=== PATIENT | male | born 1985 | race Hispanic/Latino ===

== ENCOUNTER 2018-07-12 13:07 | Emergency (ER) | payer MEDICAID ==
[2018-07-12 13:08] VITALS: BMI 22.4
[2018-07-12] MEDS ORDERED: Sodium Chloride 0.9% 1,000 ML IV ONE (15:21)
--- NOTE | 2018-07-12 15:57 | C.PDOC ---
History Of Present Illness 32 y/o male presents to the ER complaining of feeling nauseous and several episodes of vomiting. Patient states that he is having ETOH withdrawal. Patient reports that his last drink was around 10 am today. He notes that he has been binge drinking for the past 3 days after he was discharged from rehab.Denies having CP, SOB, fever, chills, and abdominal pain. Time Seen by Provider: 07/12/18 14:48 Chief Complaint (Nursing): Substance Abuse History Per: Patient History/Exam Limitations: no limitations Onset/Duration Of Symptoms: Days Current Symptoms Are (Timing): Still Present Severity: Moderate Past Medical History Reviewed: Historical Data, Nursing Documentation, Vital Signs Vital Signs: Last Vital Signs Temp 98 F 07/12/18 13:39 Pulse 105 H 07/12/18 13:39 Resp 20 07/12/18 13:39 BP 117/74 07/12/18 13:39 Pulse Ox 96 07/12/18 13:39 - Medical History PMH: No Chronic Diseases Other Surgeries: Hx of surgeries Family History: States: No Known Family Hx - Social History Hx Tobacco Use: Yes ("some days") Hx Alcohol Use: Yes Hx Substance Use: Yes (Marijuana) - Immunization History Hx Tetanus Toxoid Vaccination: No Hx Influenza Vaccination: No Hx Pneumococcal Vaccination: No Review Of Systems Except As Marked, All Systems Reviewed And Found Negative. Cardiovascular: Negative for: Chest Pain Respiratory: Negative for: Shortness of Breath Gastrointestinal: Positive for: Nausea, Vomiting. Negative for: Abdominal Pain Genitourinary: Negative for: Dysuria, Hematuria Physical Exam - Physical Exam Appears: Other (uncomfortable, mildly tremulous) Skin: Normal Color, Warm, Dry Head: Atraumatic, Normacephalic Eye(s): bilateral: Normal Inspection Nose: Normal Oral Mucosa: Moist Neck: Supple Chest: Symmetrical Cardiovascular: Rhythm Regular (with mild tachycardia) Respiratory: Normal Breath Sounds, No Rales, No Rhonchi, No Wheezing Gastrointestinal/Abdominal: Soft, Tenderness (mild epigastric tenderness), No Guarding, No Rebound, Other (negative Alicea's, negative McBurney's) Neurological/Psych: Oriented x3, Normal Speech ED Course And Treatment - Laboratory Results Result Diagrams: 07/12/18 16:09 07/12/18 16:09 O2 Sat by Pulse Oximetry: 96 (RA) Pulse Ox Interpretation: Normal Progress Note: Labs and UA ordered.Patient treated with Pepcid IV, Zofran IV, and IV Fluids. Disposition Counseled Patient/Family Regarding: Studies Performed, Diagnosis, Need For Followup, Rx Given - Disposition Referrals: [facility] [Outside] Disposition: HOME/ ROUTINE Disposition Time: 18:00 Condition: STABLE Additional Instructions: CALL FOR PRESCREENING USE MEDICATIONS DIRECTED RETURN TO ER IF YOUR SYMPTOMS WORSEN Prescriptions: chlordiazePOXIDE [Librium] 50 mg PO UPON ADM #20 cap Ondansetron ODT [Zofran ODT] 1 odt PO BID PRN #15 odt PRN Reason: Nausea/Vomiting Instructions: Alcohol Abuse and Alcoholism (DC) Forms: [facility] (Amharic) Print Language: GREENLANDIC - Clinical Impression Clinical Impression: Alcohol dependence - Scribe Statement The provider has reviewed the documentation as recorded by the Julio Babcock Provider Attestation: All medical record entries made by the Scribe were at my direction and personally dictated by me. I have reviewed the chart and agree that the record accurately reflects my personal performance of the history, physical exam, medical decision making, and the department course for this patient. I have also personally directed, reviewed, and agree with the discharge instructions and disposition.
[2018-07-12 16:12] LABS: BASO # 0.1 K/uL (0.0-0.2); BASO % 0.7 % (0.0-2.0); EOS % 0.2 % (0.0-4.0); HEMOGLOBIN 17.8 g/dL (12.0-18.0); LYMPH # 2.7 K/uL (1.0-4.3); LYMPH % 25.1 % (20.0-40.0); MEAN CELL VOLUME 93.5 fL (80.0-94.0); MEAN CORPUSCULAR HEMOGLOBIN 31.9 pg (27.0-31.0); MEAN CORPUSCULAR HGB CONC 34.1 g/dL (33.0-37.0); MEAN PLATELET VOLUME 7.1 fL (7.2-11.7); MONO # 0.4 K/uL (0.0-0.8); MONO % 4.1 % (0.0-10.0); NEUT # 7.5 K/uL (1.8-7.0); NEUT % 69.9 % (50.0-75.0); NRBC % 0.1 % (0.0-2.0); RBC 5.6 Mil/uL (4.40-5.90); RED CELL DISTRIBUTION WIDTH 13.3 % (11.5-14.5); WHITE BLOOD COUNT 10.7 K/uL (4.8-10.8)
[2018-07-12] MEDS ORDERED: Sodium Chloride 0.9% 1,000 ML ONE (16:12)
[2018-07-12 16:33] LABS: URINE BILIRUBIN NEGATIVE (NEGATIVE); URINE BLOOD NEGATIVE (NEGATIVE); URINE CLARITY Clear (Clear); URINE COLOR Yellow (YELLOW); URINE GLUCOSE (UA) NORMAL (Normal); URINE LEUKOCYTE ESTERASE NEG Leu/uL (Negative); URINE PROTEIN NEGATIVE (NEGATIVE); URINE UROBILINOGEN NORMAL mg/dL (0.2-1.0)
[2018-07-12 16:37] LABS: ALB/GLOB RATIO 1.6 (1.0-2.1); ALBUMIN 5.3 g/dL (3.5-5.0); ALT/SGPT 33 U/L (21-72); AST/SGOT 45 U/L (17-59); BLOOD UREA NITROGEN 10 mg/dL (9-20); CALCIUM 9.1 mg/dl (8.6-10.4); GFR NON-AFRICAN AMERICAN > 60; LIPASE 119 U/L (23-300)
[2018-07-12 17:33] VITALS: BP 133/82; PULSE 102; RESP 17; TEMP 98.8; O2SAT 96
== END 2018-07-12 18:21 | disposition home or self-care (01) ==
LOC: C.ER 13:07
DX: F10.20 Alcohol dependence, uncomplicated (principal); F17.200 Nicotine dependence, unspecified, uncomplicated
CPT/HCPCS: 80053; 81001; 83690; 85025; 96361; 96374; 96375; 99284; J2405; J7030

== ENCOUNTER 2018-08-11 23:46 | Inpatient (IN) | payer MEDICAID ==
[2018-08-11 23:46] VITALS: BMI 22.4
[2018-08-12] VITALS: O2SAT 96
--- NOTE | 2018-08-12 01:07 | C.PDOC ---
History Of Present Illness 32 year old male presents requesting detox. Patient also verbalizing SI earlier. Chief Complaint (Nursing): Substance Abuse History Per: Patient History/Exam Limitations: no limitations Onset/Duration Of Symptoms: Days Current Symptoms Are (Timing): Still Present Suicide/Self Injury Attempted (Context): None Recent travel outside of the [place]: No Past Medical History Reviewed: Historical Data, Nursing Documentation, Vital Signs Vital Signs: Last Vital Signs Temp 98.3 F 08/11/18 23:53 Pulse 112 H 08/11/18 23:53 Resp 24 08/11/18 23:53 BP 159/82 H 08/11/18 23:53 Pulse Ox 96 08/11/18 23:53 Family History: States: Unknown Family Hx - Social History Hx Tobacco Use: Yes ("some days") Hx Alcohol Use: Yes Hx Substance Use: Yes (Marijuana) - Immunization History Hx Tetanus Toxoid Vaccination: No Hx Influenza Vaccination: No Hx Pneumococcal Vaccination: No Review Of Systems Constitutional: Negative for: Fever, Chills Cardiovascular: Negative for: Chest Pain, Palpitations Respiratory: Negative for: Cough, Shortness of Breath Gastrointestinal: Negative for: Nausea, Vomiting Neurological: Negative for: Weakness, Numbness Physical Exam - Physical Exam Appears: Non-toxic, Other (Slightly AOB) Skin: Normal Color, Warm, Dry Head: Atraumatic, Normacephalic Eye(s): bilateral: Normal Inspection Oral Mucosa: Moist Neck: Normal, Supple Chest: Symmetrical, No Tenderness Cardiovascular: Rhythm Regular Respiratory: Normal Breath Sounds, No Rales, No Rhonchi, No Wheezing Gastrointestinal/Abdominal: Soft, No Tenderness Neurological/Psych: Oriented x3, Normal Speech ED Course And Treatment - Laboratory Results Result Diagrams: 08/12/18 01:24 08/12/18 01:24 O2 Sat by Pulse Oximetry: 96 (Room air) Pulse Ox Interpretation: Normal Progress Note: Blood work and urinalysis ordered. Patient being seen by crisis for admission. Disposition Discussed With : Brianda Hodges Doctor Will See Patient In The: Hospital Counseled Patient/Family Regarding: Diagnosis - Disposition Disposition: HOSPITALIZED Disposition Time: 03:58 Condition: STABLE Forms: [facility] (Central African) - Clinical Impression Clinical Impression: Depressive disorder, Alcohol use disorder - Scribe Statement The provider has reviewed the documentation as recorded by the Scribe Kalyan Humphrey All medical record entries made by the Scribe were at my direction and personally dictated by me. I have reviewed the chart and agree that the record accurately reflects my personal performance of the history, physical exam, medical decision making, and the department course for this patient. I have also personally directed, reviewed, and agree with the discharge instructions and disposition.
[2018-08-12 01:31] LABS: BASO % 0.4 % (0.0-2.0); EOS % 0.2 % (0.0-4.0); HEMOGLOBIN 17.7 g/dL (12.0-18.0); LYMPH # 2.3 K/uL (1.0-4.3); LYMPH % 23.3 % (20.0-40.0); MEAN CELL VOLUME 96.4 fL (80.0-94.0); MEAN CORPUSCULAR HEMOGLOBIN 33.1 pg (27.0-31.0); MEAN CORPUSCULAR HGB CONC 34.4 g/dL (33.0-37.0); MEAN PLATELET VOLUME 7.7 fL (7.2-11.7); MONO # 0.7 K/uL (0.0-0.8); MONO % 7.3 % (0.0-10.0); NEUT # 6.9 K/uL (1.8-7.0); NEUT % 68.8 % (50.0-75.0); NRBC % 0.1 % (0.0-2.0); RBC 5.35 Mil/uL (4.40-5.90); RED CELL DISTRIBUTION WIDTH 13.5 % (11.5-14.5)
[2018-08-12 01:44] LABS: URINE BILIRUBIN NEGATIVE (NEGATIVE); URINE BLOOD NEGATIVE (NEGATIVE); URINE CLARITY Clear (Clear); URINE COLOR Yellow (YELLOW); URINE GLUCOSE (UA) NORMAL (Normal); URINE LEUKOCYTE ESTERASE NEG Leu/uL (Negative); URINE PROTEIN 2+ mg/dL (NEGATIVE); URINE UROBILINOGEN NORMAL mg/dL (0.2-1.0)
[2018-08-12 01:50] LABS: ALB/GLOB RATIO 1.6 (1.0-2.1); ALBUMIN 5.5 g/dL (3.5-5.0); ALT/SGPT 37 U/L (21-72); AST/SGOT 75 U/L (17-59); BLOOD UREA NITROGEN 12 mg/dL (9-20); CALCIUM 9.3 mg/dl (8.6-10.4); GFR NON-AFRICAN AMERICAN > 60
[2018-08-12 01:54] LABS: BARBITURATES, UR NEGATIVE (NEGATIVE); BENZODIAZEPINES, UR NEGATIVE (NEGATIVE); OPIATES, UR NEGATIVE (NEGATIVE); PHENCYCLIDINE, UR NEGATIVE (NEGATIVE)
--- NOTE | 2018-08-12 06:40 | PCM.BM ---
<Margaret Hermosillo - Last Filed: 08/12/18 06:39> Treatment Plan Problems - Problems identified on initial assessmt Alcohol Abuse Date Initiated: 08/12/18 Time Initiated: 04:45 Assessment reference: NA Status: Active Medication non adherence Date Initiated: 08/12/18 Time Initiated: 04:45 Assessment reference: NA Status: Active Treatment assets and liabiliti Patient Assests: ADL independent Patient Liabilities: substance abuse (ETOH, Marijuana) - Milieu Protocol Maintain good personal hygiene: daily Encourage regular showers, daily Remind patient to perform daily oral care, every shift Remind patient to perform daily oral care, every shift Assist patient to perform ADL's Conduct patient checks and document Observation sheet: Q15 minutes Maintain personal safety: every shift Educate patient to report safety concerns to staff, every shift Monitor environment for contraband/sharps Medication safety: Monitor for expected outcome, potential side effects: every shift, Assess barriers to learning: every shift, Assess readiness for medication education: every shift <Brianda Hodges - Last Filed: 08/12/18 10:49> - Diagnosis (1) Depressive disorder Status: Acute Interventions: 08/12/18 10:50 * Assess/adjust medications daily and /or as needed * See patient on an individual basis 7x/week to assess symptoms of depression * Monitor for side effects & effectiveness of medications * (2) Alcohol use disorder Status: Acute Interventions: 08/12/18 10:50 * Assess 7x/week regarding severity of withdrawal * Educate regarding risks, benefits, side effects and alternatives of medications * Use Motivational Interviewing for abstinence * Use CBT for relapse prevention * Medication management for withdrawal symptoms * Encourage medication assisted treatment * <Nargis Garcia - Last Filed: 08/12/18 12:54> Family Contact Family involvement: Famliy/SO not involved - Goals for Treatment Patient goals for treatment: "I need a rehab." Discharge/Continuing Care - Education Needs Education Needs: Patient Medication, Patient Coping Skills, Patient Placement options, Patient Community resources - Discharge Discharge Criteria: Tolerates medication w/o severe side effects, Reduction of target symptoms Discharge to:: Substance Abuse Rehab - Treatment Team Participation Discussed with Family/SO: No Was Patient/Family/SO present at Treatment Team Meeting: Yes
--- NOTE | 2018-08-12 10:47 | PCM.PSYCH ---
Initial Psychiatric Evaluation - Initial Psychiatric Evaluation Type of Admission: Voluntary Legal Status: Capacity History of Present Illness and Precipitating Events: Patient is a 32 year old male that presented to the [facility] ED on 08/12 and was admitted to the [facility] psychiatric unit for active suicidal ideation. Patient has a previous psychiatric history depression and anxiety, which was diagnosed in 2008, and was previously psychiatrically hospitalized for an anxiety/panic attack. Patient was prescribed effexor and clonazepam for his conditions. On examination patient appears anxious but was fully cooperative with questioning. Patient has been experiencing symptoms of anhedonia, low energy, decreased sleep quality, diminished desire to eat, and guilt, which he attributes to his drinking, for the past month and up to the present. He comments that he has been drinking to cope with his depression, saying that he drinks approximately a liter of vodka and/or burbon daily for the last few months. During these periods of drinking patient hasn't been consistent in taking his psychiatric medications. Patient says that his last drink was at 4pm on 08/12 and that he has never had any seizures relating to alcohol withdrawal. He reports withdrawal symptoms from drinking including nausea, shakes, anxiety, headaches, sweating and cramps. He denies any auditory or visual hallucinations or any paranoia. Past medical history None reported Current Medications: Active Medications Generic Name Dose Route Start Last Admin Trade Name Freq PRN Reason Stop Dose Admin Chlordiazepoxide 25 mg 08/12/18 06:35 08/12/18 06:52 Librium PO 25 mg Q4H PRN Administration alcohol withdrawal Ibuprofen 600 mg 08/12/18 06:35 Motrin Tab PO Q6H PRN Pain, moderate (4-7) Ondansetron HCl 4 mg 08/12/18 06:36 Zofran Tab PO Q6H PRN Nausea/Vomiting Past Psychiatric History - Past Psychiatric History Previous Treatment History: Inpatient Pertinent Medical Hx (Current Medical&Sleep Prob, Allergies): Allergies Allergy/AdvReac Type Severity Reaction Status Date / Time nut - unspecified Allergy Severe SHORTNESS Verified 01/14/16 14:27 OF BREATH Ondansetron ODT [Zofran ODT] 1 odt PO BID PRN #15 odt 07/12/18 Venlafaxine [Effexor XR] 150 mg PO DAILY 07/12/18 chlordiazePOXIDE [Librium] 50 mg PO UPON ADM #20 cap 07/12/18 Review of Systems - Review of Systems All systems: reviewed and no additional remarkable complaints except - Psychiatric Psychiatric: Anxiety, Depression, Hopelessness, Irritability, Suicidal Ideation Mental Status Examination - Personal Presentation Personal Presentation: Looks stated age - Affect Affect: Constricted, Depressed - Motor Activity Motor Activity: Calm - Reliability in Providing Information Reliability in Providing Information: Fair - Speech Speech: Organized - Mood Mood: Depressed, Anxious - Formal Thought Process Formal Thought Process: No Impairment - Obsessions/Compulsions Obsessions: No Compulsions: No - Cognitive Functions Orientation: Person, Place, Situation, Time Sensorium: Alert Attention/Concentration: Attentive Abstract Thinking: [place] Estimate of Intelligence: Below average Judgement: Imparied, as evidence by: Poor judgement, Imparied, as evidence by: Lack of insight into illness - Risk Risk: Suicidal, Withdrawal, Diminished functioning - Limitations Limitations: Living alone DSM 5 DX - DSM 5 DSM 5 Diagnosis: Major depressive disorder single episode severe without psychotic features Alcohol use disorder severe Alcohol withdrawal - Recommended/Plan of Treatment Treatment Recommendations and Plan of Treatment: Major depressive disorder single episode severe without psychotic features Alcohol use disorder severe Alcohol withdrawal -CBT -Psychoeducation -Supportive therapy and group therapy and milieu therapy -Start medications: --Paxil for depression --Trazodone for insomnia --Hydroxyzine for anxiety --Librium taper for alcohol withdrawal --Multivitamin/thiamine/folic acid for alcohol withdrawal --Neurontin for augmentation - Smoking Cessation Smoking Cessation Initiated: No
[2018-08-12] MEDS ORDERED: Aluminum Hydroxide/Magnesium Hydroxide Susp (30 mL) PO PRN (10:49)
[2018-08-12] MEDS: Multiple Vitamins Tab PO SCH (11:45)
[2018-08-13] MEDS: Multiple Vitamins Tab PO SCH (10:02)
--- NOTE | 2018-08-13 21:21 | PCM.PYCHPN ---
Psychiatric Progress Note - Psychiatric Progress Note Patient seen today, length of contact: 17 min Patient Chief Complaint: "Not well" Problems Identified/Issues Discussed: The pt is seen, chart reviewed, case is discussed with staff. The pt is compliant with medications and reports no side-effects. Symptoms are improving but needs more time to stabilize and to avoid relapse. He says he is not well yet Pt attends groups and activities. Support given, psycho-education provided. After care discussed. Medication Change: Yes Medical Record Reviewed: Yes Mental Status Examination - Cognitive Function Orientation: Person, Place, Situation, Time Memory: Impaired Attention: Poor Concentration: Poor Association: WNL Fund of Knowledge: WNL - Mood Mood: Depressed, Anxious - Affect Affect: Constricted, Depressed - Speech Speech: Appropriate - Formal Thought Process Formal Thought Process: No Impairment - Suicidal Ideation Suicidal Ideation: No - Homicidal Ideation Homicidal Ideation: No Goal/Treatment Plan - Goal/Treatment Plan Need for Continued Stay: Discharge may exacerbated symptoms, Severe functional impairment Progress Toward Problem(s) and Goals/Treatment Plan: Continue adjusting meds Groups and activities Family contact Support and psychoed After care by CHAPO
[2018-08-14] MEDS: Multiple Vitamins Tab PO SCH (09:09)
[2018-08-15] MEDS: Multiple Vitamins Tab PO SCH (09:02)
--- NOTE | 2018-08-15 11:16 | PCM.PYCHPN ---
Psychiatric Progress Note - Psychiatric Progress Note Patient seen today, length of contact: 17 min Patient Chief Complaint: I am still withdrawing.' Problems Identified/Issues Discussed: Patient was seen and evaluated, chart reviewed and discussed the staff. Patient still reports some improvement in the depressed mood but reports some improvement in the feelings of hopelessness and helplessness. He still reports issues with sleep and appetite. He still reports withdrawal symptoms including joint pains, headaches and anxiety. He is taking medication but denies any side effects Supportive therapy was given Medication Change: Yes Medical Record Reviewed: Yes Mental Status Examination - Cognitive Function Orientation: Person, Place, Situation, Time Memory: Intact Attention: WNL Concentration: Poor Association: WNL Fund of Knowledge: Poor - Mood Mood: Depressed, Anxious - Affect Affect: Constricted, Depressed - Formal Thought Process Formal Thought Process: No Impairment - Suicidal Ideation Suicidal Ideation: No - Homicidal Ideation Homicidal Ideation: No Goal/Treatment Plan - Goal/Treatment Plan Need for Continued Stay: Remain at risks for inpatient hospitalization, Severe depression anxiety Progress Toward Problem(s) and Goals/Treatment Plan: Major depressive disorder single episode severe without psychotic features Alcohol use disorder severe Alcohol withdrawal -CBT -Psychoeducation -Supportive therapy and group therapy and milieu therapy -Start medications: --Paxil for depression --Trazodone for insomnia --Hydroxyzine for anxiety --Librium taper for alcohol withdrawal --Multivitamin/thiamine/folic acid for alcohol withdrawal --Neurontin for augmentation - Smoking Cessation Smoking Cessation Initiated: No
[2018-08-16] MEDS: Multiple Vitamins Tab PO SCH (09:07)
[2018-08-17] MEDS: Multiple Vitamins Tab PO SCH (09:32)
[2018-08-18 06:53] VITALS: RESP 20
[2018-08-18] MEDS: Multiple Vitamins Tab PO SCH (10:13)
[2018-08-18 18:19] VITALS: PULSE 72
--- NOTE | 2018-08-18 22:57 | PCM.PYCHPN ---
Psychiatric Progress Note - Psychiatric Progress Note Patient seen today, length of contact: 17 min Patient Chief Complaint: I am feeling much better.' Problems Identified/Issues Discussed: Patient was seen and evaluated, chart reviewed and discussed the staff. At this time patient is improving. Patient reports improvement in his mood and reports improvement in the withdrawal symptoms. He reports improvement in his sleep and appetite as well. He is taking medication but denies any side effects Symptoms improve improving gradually but interested little longer for further stabilization. Supportive therapy was given Medication Change: Yes Medical Record Reviewed: Yes Mental Status Examination - Cognitive Function Orientation: Person, Place, Situation, Time Memory: Intact Attention: WNL Concentration: Poor Association: WNL Fund of Knowledge: Poor - Mood Mood: Depressed, Anxious - Affect Affect: Constricted, Depressed - Speech Speech: Appropriate - Formal Thought Process Formal Thought Process: No Impairment - Suicidal Ideation Suicidal Ideation: No - Homicidal Ideation Homicidal Ideation: No Goal/Treatment Plan - Goal/Treatment Plan Need for Continued Stay: Remain at risks for inpatient hospitalization, Severe depression anxiety Progress Toward Problem(s) and Goals/Treatment Plan: Major depressive disorder single episode severe without psychotic features Alcohol use disorder severe Alcohol withdrawal -CBT -Psychoeducation -Supportive therapy and group therapy and milieu therapy -Start medications: --Paxil for depression --Trazodone for insomnia --Hydroxyzine for anxiety --Librium taper for alcohol withdrawal --Multivitamin/thiamine/folic acid for alcohol withdrawal --Neurontin for augmentation
[2018-08-19 06:13] VITALS: BP 103/65; TEMP 98
--- NOTE | 2018-08-19 09:43 | PCM.PYCHDC ---
Mental Status Examination - Mental Status Examination Orientation: Person, Place, Situation, Time Memory: Intact Mood: Neutral Affect: Constricted Speech: Soft Attention: WNL Concentration: WNL Association: WNL Fund of Knowledge: WNL Formal Thought Process: No Impairment Description of patient's judgement and insight: good, fair Psychotic Thoughts and Behaviors: denies any AVH Suicidal Ideation: No Current Homicidal Ideation?: No Discharge Summary - Discharge Note Reason for Hospitalization: Patient is a 32 year old male that presented to the [facility] ED on 08/12 and was admitted to the [facility] psychiatric unit for active suicidal ideation. Patient has a previous psychiatric history depression and anxiety, which was diagnosed in 2008, and was previously psychiatrically hospitalized for an anxiety/panic attack. Patient was prescribed effexor and clonazepam for his conditions. On examination patient appears anxious but was fully cooperative with questioning. Patient has been experiencing symptoms of anhedonia, low energy, decreased sleep quality, diminished desire to eat, and guilt, which he attributes to his drinking, for the past month and up to the present. He comments that he has been drinking to cope with his depression, saying that he drinks approximately a liter of vodka and/or burbon daily for the last few months. During these periods of drinking patient hasn't been consistent in taking his psychiatric medications. Patient says that his last drink was at 4pm on 08/12 and that he has never had any seizures relating to alcohol withdrawal. He reports withdrawal symptoms from drinking including nausea, shakes, anxiety, headaches, sweating and cramps. He denies any auditory or visual hallucinations or any paranoia. Consultations:: List each consultation separately and include: 1. Reason for request. 2. Findings. 3. Follow-up Summary of Hospital Course include:: 1. Description of specific treatment plan utilized for patients during their course of treatmen. 2. Summarize the time- course for resolution of acute symptoms and/or regressed behaviors. 3. Describe issues identified and worked on during hospitalization. 4. Describe medication utilized. 5. Describe medical problems identified and treated. 6. Reassessment of suicide risk Summary of Hospital Course: Patient is a 32 year old male that presented to the [facility] ED on 08/12 and was admitted to the [facility] psychiatric unit for active suicidal ideation. Patient has a previous psychiatric history depression and anxiety, which was diagnosed in 2008, and was previously psychiatrically hospitalized for an anxiety/panic attack. Patient was prescribed effexor and clonazepam for his conditions. On examination patient appears anxious but was fully cooperative with questioning. Patient has been experiencing symptoms of anhedonia, low energy, decreased sleep quality, diminished desire to eat, and guilt, which he attributes to his drinking, for the past month and up to the present. He comments that he has been drinking to cope with his depression, saying that he drinks approximately a liter of vodka and/or burbon daily for the last few months. During these periods of drinking patient hasn't been consistent in cy[place] ing his psychiatric medications. Patient says that his last drink was at 4pm on 08/12 and that he has never had any seizures relating to alcohol withdrawal. He reports withdrawal symptoms from drinking including nausea, shakes, anxiety, headaches, sweating and cramps. He denies any auditory or visual hallucinations or any paranoia. Past medical history None reported - Diagnosis (1) Depressive disorder Current Visit: Yes Status: Acute (2) Alcohol use disorder Current Visit: Yes Status: Acute - Final Diagnosis (DSM 5) Condition upon Discharge: STABLE DSM 5: Major depressive disorder single episode severe without psychotic features Alcohol use disorder severe Alcohol withdrawal Disposition: HOME/ ROUTINE Follow-up Treatment Plan: Major depressive disorder single episode severe without psychotic features Alcohol use disorder severe Alcohol withdrawal -CBT -Psychoeducation -Supportive therapy and group therapy and milieu therapy -Start medications: --Paxil for depression --Trazodone for insomnia --Hydroxyzine for anxiety --Librium taper for alcohol withdrawal --Multivitamin/thiamine/folic acid for alcohol withdrawal --Neurontin for augmentation Prescriptions/Medication Reconciliation: Escitalopram [Lexapro] 10 mg PO DAILY #30 tab Gabapentin [Neurontin] 300 mg PO BID #60 cap traZODone [Desyrel] 100 mg PO HS #30 tab - Smoking Cessation Smoking Cessation Medication prescribed: No - Antipsychotic Medications Pt discharged on 2 or more routine antipsychotic medications: No
[2018-08-19] MEDS: Multiple Vitamins Tab PO SCH (10:37)
== END 2018-08-19 10:25 | disposition home or self-care (01) | DRG 751 ==
LOC: C.ER 23:46 → C.5E 08-12 03:59
PROVIDERS: ADMIT Psychiatry & Neurology Psychiatry; ATTEND Psychiatry & Neurology Psychiatry
DX: F32.2 Major depressive disorder, single episode, severe without psychotic features (principal); R45.851 Suicidal ideations; F41.0 Panic disorder [episodic paroxysmal anxiety]; G47.00 Insomnia, unspecified; F10.230 Alcohol dependence with withdrawal, uncomplicated; Y90.8 Blood alcohol level of 240 mg/100 ml or more; F12.10 Cannabis abuse, uncomplicated; Z87.891 Personal history of nicotine dependence